=== PATIENT | male | born 1985 | race Caucasian/White ===

== ENCOUNTER → 2019-11-03 | Outpatient (CLI) | payer OTHER, SELFPAY ==
[2019-11-03 13:19] LABS: Erythrocyte Sedimentation Rate 6 mm/hr (0-15)
== END | disposition home or self-care (01) ==
LOC: LABSPEC 12:59
PROVIDERS: PCP Family Medicine; Referring Provider Family Medicine; Visit Provider Family Medicine
DX: K62.5 Hemorrhage of anus and rectum (principal); R10.32 Left lower quadrant pain
CPT/HCPCS: 85652; 86140

== ENCOUNTER → 2021-08-03 | Outpatient (CLI) | payer OTHER, SELFPAY | END | disposition home or self-care (01) | PROVIDERS: PCP Family Medicine; Visit Provider Family Medicine | DX: U07.1 COVID-19 (principal) | CPT/HCPCS: 87635; U0005; U0003 ==

== ENCOUNTER 2021-08-08 15:56 | Outpatient (CLI) | payer OTHER, SELFPAY ==
[2021-08-08 16:11] VITALS: BP 142/93; PULSE 91; RESP 16; TEMP 36.6; O2SAT 98; BMI 27.8
[2021-08-08] MEDS: 0.9% Saline Lock 10 ML Syringe IV (16:16)
[2021-08-08 17:12] VITALS: BP 141/93; PULSE 89; RESP 16; TEMP 36.8; O2SAT 99
[2021-08-08 18:05] VITALS: BP 138/96; PULSE 88; RESP 16; TEMP 36.8; O2SAT 98
== END 2021-08-08 18:12 ==
LOC: MS3OUT 15:57 → MS3 15:57
PROVIDERS: PCP Family Medicine; Referring Provider Nurse Practitioner Adult Health; Visit Provider Nurse Practitioner Adult Health
DX: Z23 Encounter for immunization (principal); U07.1 COVID-19
CPT/HCPCS: J7050; M0245; Q0245; A4216